=== PATIENT | female | born 1985 | race Caucasian/White ===

== ENCOUNTER 2020-07-04 14:41 | Inpatient (IN) | payer OTHER ==
[~2020-07-04] VITALS: Ht 172.7 cm; Wt 105.8 kg
[2020-07-04 14:44] VITALS: BP 121/74
[2020-07-04 15:16] LABS: ABSOLUTE NEUTROPHILS 4.6 thou/uL (1.4-8.2); BASOPHILS 0.3 % (0.0-2.0); EOSINOPHILS 0.1 % (0.0-3.0); HEMATOCRIT 38.3 % (37.0-47.0); HEMOGLOBIN 12.8 gm/dL (12.0-15.0); LYMPHOCYTES 14.2 % (24.0-44.0); MCH 31.4 pg (26.0-34.0); MCHC 33.4 g/dL (28.0-37.0); MCV 93.8 fL (80.0-100.0); MONOCYTES 11.4 % (1.0-8.0); PLATELET COUNT 129 thou/uL (150-400); RBC 4.08 mil/uL (4.20-5.00); RDW 12.3 % (10.5-14.5); WBC 6.3 thou/uL (4.0-11.0)
[2020-07-04 15:21] LABS: ANION GAP 5 mmol/L (7-16); BUN 13 mg/dL (7-18); CHLORIDE 99 mmol/L (98-107); CO2 33 mmol/L (21-32); GLUCOSE 139 mg/dL (74-106); POTASSIUM 3.8 mmol/L (3.5-5.1); SODIUM 137 mmol/L (136-145)
[2020-07-04 15:31] LABS: ALBUMIN 2.5 g/dL (3.4-5.0); DIRECT BILIRUBIN < 0.1 mg/dL (<0.1-0.2); SGOT 21 U/L (15-37); SGPT 12 U/L (30-65); TOTAL BILIRUBIN 0.3 mg/dL (0.2-1.0); TOTAL PROTEIN 7.3 g/dL (6.4-8.2); TROPONIN-I <0.06 ng/mL (<0.06)
[2020-07-04 15:35] LABS: BE(vivo) 8.3 mmol/L (-2 to +3); HCO3 34.1 mmol/L (22.0-26.0); PO2 76.2 mmHg (80.0-100.0); pH 7.434 (7.360-7.450); sO2 95.4 % (92.0-98.0)
[2020-07-04 17:17] LABS: ALBUMIN 2.5 g/dL (3.4-5.0); TOTAL PROTEIN 6.9 g/dL (6.4-8.2)
[2020-07-04 17:42] LABS: TSH 0.178 uIU/mL (0.358-3.740)
[2020-07-04 19:22] VITALS: BP 160/82
[2020-07-04] MEDS ORDERED: TIROSINT100 MCG PO (20:19)
[2020-07-04] MEDS ORDERED: SPIRONOLACTONE25 MG PO (20:20)
[2020-07-04] MEDS ORDERED: ENULOSE10 GM/15 M PO (20:20)
[2020-07-04] MEDS ORDERED: LORATIDINE 10 M10 M1 PO (20:21)
[2020-07-04] MEDS ORDERED: FOLIC ACID1 MG PO (20:21)
[2020-07-04] MEDS ORDERED: FLOMAX0.4 MG PO (20:21)
[2020-07-04] MEDS ORDERED: AZO CRANBERRY1 EAC1 PO (20:22)
[2020-07-04] MEDS ORDERED: METAMUCIL FIBER2 GM PO (20:23)
[2020-07-04] MEDS ORDERED: OYSTERCAL-D 501 EACH PO (20:23)
[2020-07-04] MEDS ORDERED: COLACE100 MG PO (20:24)
[2020-07-04 20:48] VITALS: BP 124/63
[2020-07-04 20:48] LABS: URINE BILIRUBIN NEGATIVE (Negative); URINE BLOOD NEGATIVE (Negative); URINE CLARITY CLEAR; URINE COLOR YELLOW; URINE GLUCOSE-RANDOM* NEGATIVE (Negative); URINE KETONES NEGATIVE (Negative); URINE LEUKOCYTES-REFLEX NEGATIVE (Negative); URINE NITRITE-REFLEX NEGATIVE (Negative); URINE PROTEIN (DIPSTICK) NEGATIVE (Negative); URINE UROBILINOGEN 0.2 E.U./dl (0.2-1.0)
[2020-07-04 21:31] VITALS: BP 138/74
[2020-07-05 05:36] LABS: HEMATOCRIT 37.4 % (37.0-47.0); HEMOGLOBIN 12.6 gm/dL (12.0-15.0); MCH 31.5 pg (26.0-34.0); MCHC 33.7 g/dL (28.0-37.0); MCV 93.2 fL (80.0-100.0); RBC 4.01 mil/uL (4.20-5.00); RDW 12.2 % (10.5-14.5); WBC 5.4 thou/uL (4.0-11.0)
[2020-07-05 06:18] LABS: CALCIUM 8.9 mg/dL (8.5-10.1); CREATININE 0.9 mg/dL (0.6-1.0); MAGNESIUM 2.2 mg/dL (1.8-2.4)
--- NOTE | 2020-07-05 06:44 | NUR ---
RECIEVED PT FROM ED PT, ALERT TO SELF , PT IS BLIND AND IS HAS MENTAL RETARDATION, ABLE TO FOLLOW COMMANDS. ENGINEERING PROFESSIONALS PLACED ON PT SHOWS NSR, VSS , SAT 94 % ON 3L NC. RESP EASY NON LARBORED. BED ALARM ON WITH YELLOW BRACELET . PT ABLE TO TOLERATED PO FLUIDS AND PUDDING. PT OFTEN YELLS OUT, WILL CONINTUE TO MONITOR AND REPORT CHANGES.
[2020-07-05 09:30] VITALS: BP 140/85
--- NOTE | 2020-07-05 11:17 | EKG ---
[facility] [place] [address] ELECTROCARDIOGRAM REPORT Name: PRISCA JORDAN Room #: 351-P ADM IN M.R.#: [id number] Admission: 07/04/20 Attend Phys: Ori Bautista MD Discharge: Date of : 83 Report #: [id number] THIS REPORT FOR: cc: Anne Burk Christine L. DO Lundgren, Craig H. MD [facility] THIS REPORT FOR: //name// [facility] ED Test Date: 2020-07-04 Test Time: 15:23:44 Pat Name: PRISCA JORDAN Department: Room: 351 Gender: F Filter Cleaner: GRAZYNA : 1985 Requested By: Nancy Miller Order Number: [id number] MD: Agus Aguilar Measurements Intervals [place] Rate: 95 P: 39 SC: 130 QRS: 21 QRSD: 89 T: -18 QT: 352 QTc: 443 Interpretive Statements Sinus rhythm Left atrial enlargement RSR' in V1 or V2, right VCD or RVH No previous ECG available for comparison Electronically Signed On 07-05-2020 11:16:48 CDT by Agus Aguilar [email or web address] <ELECTRONICALLY SIGNED> By: Agus Aguilar MD, FACC 07/05/20 1116 1523 1523 Agus Aguilar MD, FAC /EPI
[2020-07-05 12:35] VITALS: BP 128/83
[2020-07-05 17:31] VITALS: BP 113/80
--- NOTE | 2020-07-05 18:22 | NUR ---
PT CARE ASSUMED AT 0700, PT ALERT TO SELF, NONVERBAL, ONLY KELSEA OUT INTERMITENTLY. PT ABLE TO FOLLOW SOME COMMANDS. ON 2L OF OXYGEN, NO SIGNS OF DISTRES NOTED. USED THE BEDPAN AT TIMES. FALL PRECAUTIONS IN PLACE. [facility] OTNINUE TO MONITOR.
[2020-07-05 19:38] VITALS: BP 122/84
--- NOTE | 2020-07-05 21:00 | NUR ---
PATIENT INITIATED ON REMDESIVIR, EXPLAINED TO PATIEN THAT THIS IS AN INVESTIGATIONAL MEDICINE, THERE IS NO EVIDENCE OF UNDERSTANDING
--- NOTE | 2020-07-06 03:00 | NUR ---
USING THE BEDPAN ONCE TO COLLECT URINE AND PER REQUEST, ANOTHER TIME PER REQUEST, INCONTINENT ONCE. HER PREFERED SODA GIVEN WITH AND WITHOUT A LITTLE ORANGE JUICE. TURNED TO SIDE WITH MIN ASSIST. YELLING FREQUENTLY, BUT I AM UNABLE TO FIGURE OUT ANYTHING ELSE I CAN DO TO MAKE HER HAPPY. SHE WAS HITTING HERSELF IN THE HEAD FRQUENTLY UNTIL I REDID HER "SCRUNCHY", SHE HAS BEEN POINTING TO THE LOWER SIDERAIL, I CAN ONLY SURMISE THAT SHE WANTS TO GET UP, OTHERWISE I AM AT A LOSS TO UNDERSTAND WHAT SHE DESIRES.
[2020-07-06 03:28] VITALS: BP 135/87
[2020-07-06 07:23] VITALS: BP 137/91
[2020-07-06 07:35] LABS: HEMATOCRIT 37.9 % (37.0-47.0); HEMOGLOBIN 12.6 gm/dL (12.0-15.0); MCH 31.5 pg (26.0-34.0); MCHC 33.3 g/dL (28.0-37.0); MCV 94.6 fL (80.0-100.0); PLATELET COUNT 199 thou/uL (150-400); RBC 4.01 mil/uL (4.20-5.00); RDW 12.3 % (10.5-14.5); WBC 8.8 thou/uL (4.0-11.0)
[2020-07-06 07:43] LABS: FIBRINOGEN 314.7 mg/dL (210-360); PROTIME 10.2 Seconds (9.3-11.4)
[2020-07-06 07:58] LABS: ALBUMIN 2.3 g/dL (3.4-5.0); CALCIUM 8.5 mg/dL (8.5-10.1); CREATININE 0.9 mg/dL (0.6-1.0); POTASSIUM 3.9 mmol/L (3.5-5.1); TOTAL BILIRUBIN 0.2 mg/dL (0.2-1.0)
[2020-07-06 08:41] LABS: ABSOLUTE NEUTROPHILS 7.1 thou/uL (1.4-8.2); METAMYELOCYTES 2 %; MYELOCYTES 2 %
--- NOTE | 2020-07-06 16:03 | NUR ---
INITIAL ASSESSMENT: Received consult. RJ reviewed chart and spoke with nursing and attending physician. Pt was admitted from [facility] due to hypoxia. Pt has tested positive for COVID-19 prior to admission. Pt is afebrile and on 2L of O2. Pt is IV abx, IV steroids and completing course of Remdesivir. Pt is a [place] through the [facility] Public Adult Care Provider's Office. Pt with hx of MR. [place] contacted Mauricio Mancuso with the PA office, who was not aware of pt's admission. Verbal consent to treat obtained. Mauricio to send pt's guardianship ppwk to RJ, to place on pt's chart. RJ left voice message at the shelter. Plan is for pt to return to the shelter when medically stable. RJ is following to assist as needed with discharge planning.
--- NOTE | 2020-07-06 16:28 | NUR ---
assumed care of pt at 0700. pt nonverbal, screams when has immediate needs. able to be redirected. able to follow simple commands. up w/ 2 assist to bsc or able to use bedpan. constantly wanting to eat and drink. very good appetite. turns self in bed. remains on 2L Nc. spoke with intermediate pipe joints supervisor regarding POC. pt progressing toward poc goals.
[2020-07-06 17:25] VITALS: BP 145/78
[2020-07-06 19:18] VITALS: BP 144/62
[2020-07-06] MEDS ORDERED: MURINE EAR DROP15 ML OTIC (22:17)
[2020-07-06] MEDS ORDERED: DEPAKOTE500 MG PO (22:18)
[2020-07-06] MEDS ORDERED: RISPERDAL 1 MG T1 MG PO (22:20)
[2020-07-06] MEDS ORDERED: MUCINEX600 MG PO (22:23)
[2020-07-06] MEDS ORDERED: SLEEP AID50 MG PO (22:24)
[2020-07-06] MEDS ORDERED: PAIN RELIEVER325 MG PO (22:25)
[2020-07-06] MEDS ORDERED: BUDESONIDE0.25 MG/2 INH (22:29)
[2020-07-06] MEDS ORDERED: AMITRIPTYLINE H25 M3 PO (22:31)
[2020-07-07 03:44] VITALS: BP 138/82
[2020-07-07 05:48] LABS: HEMATOCRIT 37.2 % (37.0-47.0); HEMOGLOBIN 12.2 gm/dL (12.0-15.0); MCHC 32.9 g/dL (28.0-37.0); MCV 94.3 fL (80.0-100.0); RBC 3.95 mil/uL (4.20-5.00); RDW 12.4 % (10.5-14.5); WBC 11.2 thou/uL (4.0-11.0)
[2020-07-07 06:06] LABS: ALBUMIN 2.3 g/dL (3.4-5.0); CALCIUM 8.4 mg/dL (8.5-10.1); CREATININE 0.8 mg/dL (0.6-1.0); POTASSIUM 4.2 mmol/L (3.5-5.1); TOTAL BILIRUBIN 0.2 mg/dL (0.2-1.0); TOTAL PROTEIN 6.7 g/dL (6.4-8.2)
--- NOTE | 2020-07-07 06:20 | NUR ---
FOLLOWING POC WITH REMDESIVIR AND IV STEROIDS. LOOKED THROUGH PT HOME MEDICATIONS AND RECEIVED ORDERS TO RESTART 3 THAT WERE MISSING. WILL HELP WITH POC. VSS OVERNIGHT. PT COMMUNICATES VIA SIGN LANGUAGE. COPIED A SHEET OUT OF PT BINDER THAT WILL HELP WITH COMMUNICATION. PT ABLE TO EAT AND DRINK, WITH SIMPLE CUES. ISOLATION AND FALL PRECAUTIONS IN PLACE.
[2020-07-07 07:24] VITALS: BP 145/81
[2020-07-07 11:08] VITALS: BP 143/122
--- NOTE | 2020-07-07 12:52 | NUR ---
RJ reviewed chart and spoke with nursing and attending physician. Pt remains in Enhanced Isolation due to COVID-19. Pt is afebrile and on 2L of O2. Pt is on IV abx and IV steroids. Completing course of Remdesivir. [phone][facility] to provide update and discuss discharge plan. Pt is a [place] of the state through [facility] Public Teenage Babysitter's Office. ALL consents need to be obtained through the PA office. Plan is for pt to return to the long-term when medically stable. RJ is following to assist as needed with discharge planning.
--- NOTE | 2020-07-07 14:33 | NUR ---
PT CARE ASSUMED AT 0700, PT ALERT TO SELF, ABLE TO FOLLWO SIMPLE COMMANDS. PT OXYGEN DECREASED DOWN TO 1L, OXYGEN SATIRATION WNL. PT HAS GOOD APPETITE, FINISHED BOTH HER BREAKFAST AND LUNCH. HAD TO BOWEL MOVEMENT ON MY SHIFT. PT ABLE TO TURN SELF. FALL PRECAUTIONS IN PLACE. WILL CONTINUE TO MONITOR.
[2020-07-07 15:00] VITALS: BP 131/65
--- NOTE | 2020-07-07 19:24 | NUR ---
PT CARE ASSUMED AT 0700, PT ALERT TO SELF AND ABLE TO FOLLOW COMMADS. PT O2 DECREASED DOWN TO 1L, NO SIGNS OF DISTRESS NOTED. FALL PRECAUTIONS IN PLACE. PT PROGRESSING TOWARDS CARE. WILL CONTINUE TO MONITOR.
[2020-07-07 21:31] VITALS: BP 124/72
[2020-07-08 03:02] VITALS: BP 133/66
[2020-07-08 05:26] LABS: HEMATOCRIT 39.4 % (37.0-47.0); HEMOGLOBIN 13.2 gm/dL (12.0-15.0); MCH 31.5 pg (26.0-34.0); MCHC 33.5 g/dL (28.0-37.0); MCV 93.9 fL (80.0-100.0); RBC 4.19 mil/uL (4.20-5.00); RDW 12.8 % (10.5-14.5); WBC 12.6 thou/uL (4.0-11.0)
[2020-07-08 05:52] LABS: CALCIUM 8.2 mg/dL (8.5-10.1); CREATININE 0.7 mg/dL (0.6-1.0); MAGNESIUM 2.5 mg/dL (1.8-2.4); POTASSIUM 4.1 mmol/L (3.5-5.1)
--- NOTE | 2020-07-08 06:11 | NUR ---
PT TITRATED DOWN TO 1L 02. VSS OVERNIGHT. PT HAD 2X URINE INCONT. PT CAN EXPRESS NEEDS WITH LIMITED SIGN LANGUAGE. FALL AND ISOLATION PRECAUTIONS IN PLACE.
[2020-07-08 07:30] VITALS: BP 140/74
--- NOTE | 2020-07-08 14:26 | NUR ---
PT CARE ASUMED AT 0700, PT ALERT TO SELF, ABLE TO FOLLOW COMMANDS. PT IS ON ROOM AIR, NO SIGNS OF DISTRESS NOTED. FALL PRECAUTIONS IN PLACE. WILL CONTINUE TO MONITOR
--- NOTE | 2020-07-08 15:56 | NUR ---
RJ reviewed chart and spoke with nursing and attending physician. Pt remains in Enhanced Isolation to r/o COVID-19. Pt is afebrile and not requiring O2. Pt is on IV abx and IV steroids. Completing course of Remdesivir. RJ [facility], to provide update. Pt may be ready for discharge in 1-2 days. RJ spoke with Enriqueta at the retirement to discuss discharge. Discharge med list to be faxed to the retirement pharmacy: [phone]. Pt will need transportation home. RJ updated Mauricio Mancuso with the [facility] PA office. RJ is following to assist as needed with discharge planning.
[2020-07-08 18:20] VITALS: BP 130/887
[2020-07-08 20:35] VITALS: BP 128/70
[2020-07-09 05:23] VITALS: BP 131/68
--- NOTE | 2020-07-09 05:43 | NUR ---
ASSUMED CARE AT 1900, ASSESSMENT COMPLETED. PT YELLING FREQ START OF SHIFT, USED BEDPAN MULTIPLE TIMES AND GIVEN FREQ DRINKS WHICH HELPED HER CALM DOWN. REMDESIVIR INFUSED, ONE DOSE LEFT. PT'S RESTLESS MOVEMENT EARLY IN SHIFT CAUSED HER IV TO PULL OUT; NEW IV PLACED TO INNER LEFT FA. HR SENTHIL IN 50'S OVERNIGHT. NO OTHER CONCERNS, WILL CONTINUE TO MONITOR.
[2020-07-09 07:25] VITALS: BP 137/78
--- NOTE | 2020-07-09 08:00 | NUR ---
PT YELLING AND NEEDED TO USE BED ALLEN. PT VOIDED LARGE AMOUNT OF URINE. PT ROLLS OVER BEFORE ALLEN CAN BE TAKEN, PT BED PAD CHANGED. PT TAPPING AT MOUTH WHICH MEANS TO EAT OR DRINK. GOT PT FRESH ICE WATER. PT DRANK X2 CUPS OF WATER. PT ALSO POINTING AT HEAD, AND SUCH IS HAT PER INFO PAPER. COULD NOT FIND A HAT. PT YELLING ON AND OFF AND FEELING AROUND BED. PT CAN SIT UP ON OWN. BED ALARM ON FOR SAFETY. LEFT FA IV INTACT. PT ON ROOM AIR WITH SAT 95%. PT HAD DRY COUGH AT TIMES. PT CHEEKS ARE NAYELY AND AT NOSE BRIGDE. PT IS A FEEDER UNLESS HAVING FINGER FOODS.
--- NOTE | 2020-07-09 08:17 | NUR ---
FEED PT BREAKFAST. PT DRANK AND ATE WITHOUT ANY ISSUES. PT TOOK MEDS WHOLE WITH WATER. PT RESTLESS AT TIMES FEELING TOP PART OF BED AND LEANING OVER AND YELLING.
--- NOTE | 2020-07-09 09:39 | NUR ---
PT YELLING OUT. PT TAPPING CHIN WITH HAND. BRUSHED HAIR AND PUT UP IN HAIR TIE, ALSO GAVE PT A PAPER HAT, PT TOOK OFF. PT PULLING ON GOWN, ASKED IF SHE NEEDED A NEW GOWN, SHOOK HEAD YES. PUT ON NEW GOWN AND APPLIED DEODERANT. PT SEEMS CALMER AT THIS TIME COVERING SELF UP WITH BLANKET. READING BACKGROUND, PT DOESN'T LIKE HAIR IN HER FACE. 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 PT RT HAND IS CONTRACTED FROM PREVIOUS STROKE, CLEANED RT HAND WITH WIPE. PT DOES SHAKE HEAD YES WITH SOME QUESTIONS.
--- NOTE | 2020-07-09 10:27 | NUR ---
ASSISTED PT TO USE BSC. PT VOIDED 400ML. PT GIVEN WATER TO DRINK. PT HAS DRANK 1000ML AT THIS TIME SINCE 0700.
--- NOTE | 2020-07-09 11:23 | NUR ---
PT REALY AGGITATED. PT SHOWS LEFT HAND IN C FORM. GAVE PT GRAHMN CRACKER, PT ATE CRACKER, STILL UPSET. CALLED DR. CAMARGO FOR MEDICATION FOR PAIN/ANXIETY.
--- NOTE | 2020-07-09 12:52 | NUR ---
AFTER PT ATE LUNCH, SEEMS CALMER AT THIS TIME.
--- NOTE | 2020-07-09 13:49 | NUR ---
ASSISTED PT TO USE BED ALLEN, PT SAID PEE PEE. PT VOIDED 400ML OF CLEAR YELLOW URINE. ADM TYLENOL 325MG 2 TABS PO FOR POSS. PAIN. PT LIKES TO DRINK WATER AND EAT COOKIES, GRAHMN CRACKERS.
[2020-07-09 15:05] VITALS: BP 137/78
--- NOTE | 2020-07-09 15:14 | NUR ---
PT STILL RESTLESS AND PT GOT HERE UP TO CHAIR. PT SAYING PEE PEE. PT GOT UP WITH ASSIST TO [facility]. PT VOIDED AND HAD BM. PT TRANSFERED BACK TO CHAIR, PT STILL WANTING TO GET UP AND TAPPING THE BED. PT WANTING TO LAY DOWN. ASSISTED PT TO BED X1 ASSIST.
--- NOTE | 2020-07-09 15:15 | NUR ---
ADM LORAZEPAM 1MG PO FOR CRYING OUT AND RESTLESS.
--- NOTE | 2020-07-09 15:28 | NUR ---
DR. CAMARGO SEEING PT. PT IN BED AND RESTING WITH EYES CLOSED. PUT FAN ON PT TO HELP WITH CLIMATE.
--- NOTE | 2020-07-09 15:48 | NUR ---
TALKED TO [employer] CHIP MAKER NURSE FOR PT. SHE WANTS TO BE CALLED WHEN PT IS DISCHARGING SHE WILL ALSO GET REPORT, HER NUMBER IS [phone].
--- NOTE | 2020-07-09 16:03 | NUR ---
RJ reviewed chart and spoke with nursing and attending physician. Pt remains in Enhanced Isolation due to COVID-19. Pt is afebrile and not requiring O2. Pt is on IV abx and IV steroids. Pt to finish course of Remdesivir this evening. [facility]charge back to [facility] for tomorrow. [facility] spoke with [facility] at the [facility] to provide update. The [facility]) will need discharge med list faxed to them when available ( ). Pt will need transportation home. RJ discussed arranging HH services for pt when she returns. Marisela states she will discuss with the clinical team at the [facility]. RJ updated Mauricio Mancuso with the [facility] PA office. RJ is following to assist as needed with discharge planning.
--- NOTE | 2020-07-09 17:20 | NUR ---
PT RESTING WITH EYES CLOSED.
--- NOTE | 2020-07-09 17:28 | NUR ---
PT HAS BEEN RUNNING SINUS SENTHIL TODAY. PT SEEMS CALMER NOW SINCE LORAZEPAM. PT NOT RESTLESS OR YELLING.
[2020-07-09 20:58] VITALS: BP 154/80
--- NOTE | 2020-07-10 03:56 | NUR ---
ASSUMED CARE AT 1900. PT DROWSY BUT AROUSEABLE TO TAKE HS MEDS AND DRINK WATER. LAST DOSE REMDESIVIR INFUSED. HAD TWO EPISODES OF URINARY INCONT OVERNIGHT SHE WAS VERY DROWSY; USED BEDPAN TWICE WELL. THIS AM, PT AWAKE AND YELLING FREQ, HAVING GIVEN DRINKS, SNACKS, AND OTHER COMFORT ITEMS. WILL CONTINUE TO MONITOR.
[2020-07-10 04:07] VITALS: BP 126/84
[2020-07-10 07:31] VITALS: BP 97/52
[2020-07-10 08:37] LABS: MCH 30.8 pg (26.0-34.0); MCHC 32.5 g/dL (28.0-37.0); MCV 94.6 fL (80.0-100.0); RBC 4.55 mil/uL (4.20-5.00); RDW 12.9 % (10.5-14.5); WBC 9.3 thou/uL (4.0-11.0)
[2020-07-10 08:55] LABS: CALCIUM 8.4 mg/dL (8.5-10.1); CREATININE 0.8 mg/dL (0.6-1.0); POTASSIUM 3.7 mmol/L (3.5-5.1)
[2020-07-10] MEDS ORDERED: CEFDINIR300 MG PO (11:49)
[2020-07-10] MEDS ORDERED: PREDNISONE 10 M10 M1 PO (11:49)
--- NOTE | 2020-07-10 16:09 | NUR ---
DISCHARGE NOTE: RJ reviewed chart and spoke with nursing and attending physician. Pt remains in Enhanced Isolation due to COVID-19. Pt is afebrile and not requiring O2. Pt completed course of Remdesivir last night and is medically stable for discharge back to her [facility] today. RJ notified Mauricio Mancuso with the [facility] PA office. Consent given to discharge pt. RJ faxed medication list to [facility] pharmacy and spoke with pharmacist. RJ arranged ambulance transportation through [employer]. Notified pt is COVID positive. Trip # [id number] provided. Ambulance to arrive between [id number]. RJ updated pt's nurse, who has called report to the [facility]. RJ spoke with staff at pt's [facility] to notify of pt's discharge and timeframe. No additional SW needs identified at this time, but is available to assist should needs arise.
--- NOTE | 2020-07-10 16:12 | NUR ---
ASSUMED PATIENT CARE AT 0700. AWAKE. VSS. PPROGRESSING TOWARDS POC GOALS. DC HOME SOON.
== END 2020-07-10 18:21 | disposition home health service (06) | DRG 871 ==
LOC: ER 14:41 → 3W 17:03 → EROBS 17:03 → 3W 21:13
PROVIDERS: Emergency Medicine; Hospitalist; Specialist; ADMIT Internal Medicine; ATTEND Internal Medicine
PROC: XW033E5 Introduction of Remdesivir Anti-infective into Peripheral Vein, Percutaneous Approach, New Technology Group 5 (ICD-10-PCS; principal; 2020-07-05)
PROC: XW033E5 Introduction of Remdesivir Anti-infective into Peripheral Vein, Percutaneous Approach, New Technology Group 5 (ICD-10-PCS; 2020-07-06)
PROC: XW033E5 Introduction of Remdesivir Anti-infective into Peripheral Vein, Percutaneous Approach, New Technology Group 5 (ICD-10-PCS; 2020-07-07)
PROC: XW033E5 Introduction of Remdesivir Anti-infective into Peripheral Vein, Percutaneous Approach, New Technology Group 5 (ICD-10-PCS; 2020-07-08)
PROC: XW033E5 Introduction of Remdesivir Anti-infective into Peripheral Vein, Percutaneous Approach, New Technology Group 5 (ICD-10-PCS; 2020-07-09)
DX: A41.89 Other specified sepsis (principal); U07.1 COVID-19; J12.89 Other viral pneumonia; J96.02 Acute respiratory failure with hypercapnia; J96.01 Acute respiratory failure with hypoxia; E43 Unspecified severe protein-calorie malnutrition; F78 Other intellectual disabilities; E66.9 Obesity, unspecified; Z88.8 Allergy status to other drugs, medicaments and biological substances; Z79.899 Other long term (current) drug therapy; Z68.35 Body mass index [BMI] 35.0-35.9, adult; Z23 Encounter for immunization
CPT/HCPCS: 10879